=== PATIENT | male | born 2000 | race African-American/Black ===

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

== ENCOUNTER 2021-04-22 15:34 | Emergency (ER) | payer MEDICARE, OTHER ==
[2021-04-22 16:27] LABS: Glucose,Whole Blood 309 mg/dL (75-99)
[2021-04-22] MEDS ORDERED: SODIUM CHLORIDE 0.9% 1,000 ML IV STA (16:41)
[2021-04-22] MEDS ORDERED: ONDANSETRON 4 MG/2 ML VIAL IVP STA (16:42)
[2021-04-22 17:00] LABS: Amphetamine Screen,Urine Not Detected (NotDetected); Barbiturate Screen,Urine Not Detected (NotDetected); Benzodiazepines Screen,Urine Not Detected (NotDetected); Cocaine Screen,Urine Not Detected (NotDetected); Methadone Screen, Urine Not Detected (NotDetected); Opiate Screen,Urine Not Detected (NotDetected); Oxycodone Screen, Urine Not Detected (NotDetected); Phencyclidine Screen,Urine Not Detected (NotDetected); Tricyclic Antidepressant,Urine Not Detected (NotDetected); Urn Cannabinoid Scrn Not Detected (NotDetected)
[2021-04-22 17:16] LABS: Basophils # (A) 0.1 k/uL (0-0.2); Basophils % (A) 1 %; Eosinophils # (A) 0.3 k/uL (0-0.7); Eosinophils % (A) 5 %; HCT 47.5 % (39.0-53.0); HGB 16.1 gm/dL (13.0-17.5); Lymphocytes # (A) 2.6 k/uL (1.0-4.8); Lymphocytes % (A) 37 %; MCH 26.5 pg (25.0-35.0); MCHC 33.8 g/dL (31.0-37.0); MCV 78.4 fL (80.0-100.0); Mean Platelet Volume 9.3; Monocytes # (A) 0.4 k/uL (0-1.0); Monocytes % (A) 5 %; Neutrophils # (A) 3.4 k/uL (1.3-7.7); Neutrophils % (A) 49 %; Platelet Count 222 k/uL (150-450); RBC 6.07 m/uL (4.30-5.90); RDW 14.9 % (11.5-15.5); WBC 6.9 k/uL (4.0-11.0)
[2021-04-22 17:38] LABS: African American GFR (CKD) >90 (>60 ml/min/1.73 sqM); Anion Gap 10 mmol/L; Blood Urea Nitrogen 13 mg/dL (9-20); Calcium 9.8 mg/dL (8.4-10.2); Carbon Dioxide 24 mmol/L (22-30); Chloride 100 mmol/L (98-107); Glucose 315 mg/dL (74-99); Magnesium 1.9 mg/dL (1.6-2.3); Non-African American GFR(CKD) >90 (>60 ml/min/1.73 sqM); Potassium 4.7 mmol/L (3.5-5.1); Sodium 134 mmol/L (137-145)
[2021-04-22] MEDS ORDERED: INSULIN ASPART (NovoLOG) 100 UNIT/ML VIAL SQ ONE (18:36)
--- NOTE | 2021-04-22 19:22 | ED ---
General Adult HPI - General Chief complaint: Psychiatric Symptoms Stated complaint: EPS Time Seen by Provider: 04/22/21 15:57 Source: EMS, RN notes reviewed, old records reviewed Mode of arrival: EMS Limitations: no limitations - History of Present Illness Initial comments: I evaluated the patient was placed in a room. Patient is a 20-year-old male wit h past medical history remarkable for recently diagnosed insulin dependent diabetes, autism, as well as anger outbursts who presents emergency department after being brought in by his mother following an anger outburst. Patient was at home and throwing things and told his mother that he wants to kill himself. She became concerned and brought him into the emergency for evaluation. The patient does endorse suicidal ideations as well as a plan, that being hanging himself in his house. Denies any attempts. Denies any homicidal ideations, attempts, plans. Denies any visual or auditory hallucinations at this time. Patient currently denies any acute complaints except for some mild nausea which he states is chronic. Patient does have a history of diabetes and his sugars have been running high. There is been no emesis. He is not urinating frequently. He denies any chest pain, AMANDA. He has no other acute complaints at this time. Denies any fevers, chills, cough. - Related Data Home Medications Medication Instructions Recorded Confirmed ARIPiprazole [Abilify] 5 mg PO QAM 04/03/20 08/23/20 FLUoxetine HCL [PROzac] 20 mg PO DAILY 04/03/20 08/23/20 INSULIN LISPRO (humaLOG) [humaLOG] 5 unit SQ AC-TID 06/16/20 08/23/20 INSULIN LISPRO (humaLOG) [humaLOG] See Protocol SQ AC-TID PRN 06/16/20 08/23/20 Insulin Glargine,Hum.rec.anlog 30 unit SQ HS 06/16/20 08/23/20 [Basaglar Kwikpen U-100] metFORMIN HCL 500 mg PO HS 06/16/20 08/23/20 Allergies Allergy/AdvReac Type Severity Reaction Status Date / Time No Known Allergies Allergy Verified 04/22/21 15:51 Review of Systems ROS Statement: Those systems with pertinent positive or pertinent negative responses have been documented in the HPI. Review of Systems: CONST: Denies fever EYES: Denies blurry vision ENT: Denies nasal congestion C/V: Denies Chest pain RESP: Denies shortness of breath GI: Denies abdominal pain : Denies dysuria SKIN: Denies rash. MSK: Denies joint pain. NEURO: Denies headache PSYCH: Denies homicidal ideations/plans/attempts. Denies visual or auditory hallucinations. He endorses suicidal ideations and plans but denies attempts. ROS Other: All systems not noted in ROS Statement are negative. Past Medical History Past Medical History: Diabetes Mellitus Additional Past Medical History / Comment(s): austism History of Any Multi-Drug Resistant Organisms: None Reported Past Surgical History: No Surgical Hx Reported Additional Past Surgical History / Comment(s): tonsillectomy at 4 years old Past Anesthesia/Blood Transfusion Reactions: No Reported Reaction Past Psychological History: Anxiety, Depression Smoking Status: Never smoker Past Alcohol Use History: None Reported Past Drug Use History: None Reported General Exam - General Exam Comments Initial Comments: General: Appears in no acute distress. HEAD: Normal with no signs of head trauma. EYES: PERRLA, EOMI, conjunctiva normal, no discharge. Pupils are 3 mm and equal bilaterally. ENT: Hearing grossly intact, normal oropharynx. RESPIRATORY: Clear breath sounds bilaterally. No wheezes, rales, or rhonchi. C/V: Regular rate and rhythm. S1 and S2 auscultated, no edema, peripheral pulses 2+ and intact throughout ABD: Abd is soft, nontender, nondistended EXT: Normal range of motion, no obvious deformity SKIN: No rashes or lesions observed on exposed skin. NEURO: Alert and oriented 4. No focal deficits. Limitations: no limitations Course Vital Signs 04/22/21 04/22/21 04/22/21 15:43 17:56 19:46 Temperature 98.1 F Pulse Rate 85 79 82 Respiratory 18 16 18 Rate Blood Pressure 131/81 130/80 118/75 O2 Sat by Pulse 95 96 96 Oximetry Medical Decision Making - Medical Decision Making Based on the patient's presentation and physical exam, do believe that he requir es psychiatric evaluation. Breathalyzer alcohol was obtained and was 0. UDS will be ordered. We will also obtain a POC blood glucose. It was over 300 and therefore we will obtain basic laboratory studies to ensure the patient is not in DKA as he is endorsing mild nausea. He will be given a 1 L fluid bolus as well as IV Zofran. Patient's mother were in agreement this plan. Patient's laboratory studies were relatively unremarkable and did not reveal any signs of acute DKA. Patient is hyperglycemic and will be given 5 units of insulin. At this time, patient is medically cleared for evaluation by EPS. His nausea has resolved. EPS evaluated the patient includes a prescription for discharge home. He is cleared from a psychiatric standpoint. Patient's mother was giving outpatient follow-up information. Patient was therefore discharged home in good condition. - Lab Data Result diagrams: 04/22/21 17:07 04/22/21 17:07 Lab Results 04/22/21 04/22/21 04/22/21 Range/Units 16:16 16:31 17:07 WBC 6.9 (4.0-11.0) k/uL RBC 6.07 H (4.30-5.90) m/uL Hgb 16.1 (13.0-17.5) gm/dL Hct 47.5 (39.0-53.0) % MCV 78.4 L (80.0-100.0) fL MCH 26.5 (25.0-35.0) pg MCHC 33.8 (31.0-37.0) g/dL RDW 14.9 (11.5-15.5) % Plt Count 222 (150-450) k/uL MPV 9.3 Neutrophils % 49 % Lymphocytes % 37 % Monocytes % 5 % Eosinophils % 5 % Basophils % 1 % Neutrophils # 3.4 (1.3-7.7) k/uL Lymphocytes # 2.6 (1.0-4.8) k/uL Monocytes # 0.4 (0-1.0) k/uL Eosinophils # 0.3 (0-0.7) k/uL Basophils # 0.1 (0-0.2) k/uL Sodium (137-145) mmol/L Potassium (3.5-5.1) mmol/L Chloride (98-107) mmol/L Carbon Dioxide (22-30) mmol/L Anion Gap mmol/L BUN (9-20) mg/dL Creatinine (0.66-1.25) mg/dL Est GFR (CKD-EPI)AfAm (>60 ml/min/1.73 sqM) Est GFR (CKD-EPI)NonAf (>60 ml/min/1.73 sqM) Glucose (74-99) mg/dL POC Glucose (mg/dL) 309 H (75-99) mg/dL POC Glu Director Of Assessing ID Khushi Nino Calcium (8.4-10.2) mg/dL Magnesium (1.6-2.3) mg/dL Urine Opiates Screen Not Detected (NotDetected) Ur Oxycodone Screen Not Detected (NotDetected) Urine Methadone Screen Not Detected (NotDetected) Ur Propoxyphene Screen Not Detected (NotDetected) Ur Barbiturates Screen Not Detected (NotDetected) U Tricyclic Antidepress Not Detected (NotDetected) Ur Phencyclidine Scrn Not Detected (NotDetected) Ur Amphetamines Screen Not Detected (NotDetected) U Methamphetamines Scrn Not Detected (NotDetected) U Benzodiazepines Scrn Not Detected (NotDetected) Urine Cocaine Screen Not Detected (NotDetected) U Marijuana (THC) Screen Not Detected (NotDetected) 04/22/21 Range/Units 17:07 WBC (4.0-11.0) k/uL RBC (4.30-5.90) m/uL Hgb (13.0-17.5) gm/dL Hct (39.0-53.0) % MCV (80.0-100.0) fL MCH (25.0-35.0) pg MCHC (31.0-37.0) g/dL RDW (11.5-15.5) % Plt Count (150-450) k/uL MPV Neutrophils % % Lymphocytes % % Monocytes % % Eosinophils % % Basophils % % Neutrophils # (1.3-7.7) k/uL Lymphocytes # (1.0-4.8) k/uL Monocytes # (0-1.0) k/uL Eosinophils # (0-0.7) k/uL Basophils # (0-0.2) k/uL Sodium 134 L (137-145) mmol/L Potassium 4.7 (3.5-5.1) mmol/L Chloride 100 (98-107) mmol/L Carbon Dioxide 24 (22-30) mmol/L Anion Gap 10 mmol/L BUN 13 (9-20) mg/dL Creatinine 0.59 L (0.66-1.25) mg/dL Est GFR (CKD-EPI)AfAm >90 (>60 ml/min/1.73 sqM) Est GFR (CKD-EPI)NonAf >90 (>60 ml/min/1.73 sqM) Glucose 315 H (74-99) mg/dL POC Glucose (mg/dL) (75-99) mg/dL POC Glu Director Of Assessing ID Calcium 9.8 (8.4-10.2) mg/dL Magnesium 1.9 (1.6-2.3) mg/dL Urine Opiates Screen (NotDetected) Ur Oxycodone Screen (NotDetected) Urine Methadone Screen (NotDetected) Ur Propoxyphene Screen (NotDetected) Ur Barbiturates Screen (NotDetected) U Tricyclic Antidepress (NotDetected) Ur Phencyclidine Scrn (NotDetected) Ur Amphetamines Screen (NotDetected) U Methamphetamines Scrn (NotDetected) U Benzodiazepines Scrn (NotDetected) Urine Cocaine Screen (NotDetected) U Marijuana (THC) Screen (NotDetected) Disposition Clinical Impression: Encounter for psychiatric assessment, Hyperglycemia due to diabetes mellitus Disposition: HOME SELF-CARE Condition: Good Instructions (If sedation given, give patient instructions): Depression (ED), Help Prevent Suicide (ED), Anxiety (ED), Suicide Prevention (ED) Is patient prescribed a controlled substance at d/c from ED?: No Referrals: Keith Barba DO [Primary Care Provider] - 1-2 days
[2021-04-22 19:52] VITALS: BP 118/75; PULSE 82; RESP 18; TEMP 98.1
== END 2021-04-22 19:56 | disposition home or self-care (01) ==
LOC: EC 15:34
DX: Z04.6 Encounter for general psychiatric examination, requested by authority (principal); E11.65 Type 2 diabetes mellitus with hyperglycemia; F84.0 Autistic disorder; F41.9 Anxiety disorder, unspecified; F32.9 Major depressive disorder, single episode, unspecified; Z79.4 Long term (current) use of insulin; Z90.89 Acquired absence of other organs
CPT/HCPCS: 99285; 96374; 96361; 82075; 36415; 80048; 83735; 85025; 80306; J2405

== ENCOUNTER → 2021-12-26 | Outpatient (CLI) | payer MEDICARE, OTHER ==
[2021-12-26 14:45] LABS: African American GFR (CKD) 152.8 (60.0-200.0); Albumin 4.6 g/dL (3.8-4.9); Albumin/Globulin Ratio 1.73 (1.60-3.17); Anion Gap 5.9 mmol/L (10.00-18.00); BUN/Creat Ratio 15.67 Ratio (12.00-20.00); Blood Urea Nitrogen 11.8 mg/dL (9.0-27.0); Calcium 10.2 mg/dL (8.7-10.3); Carbon Dioxide 28.8 mmol/L (20.0-27.5); Globulin 2.6 g/dL (1.6-3.3); Non-African American GFR(CKD) 131.8 (60.0-200.0); Potassium 4.6 mmol/L (3.5-5.5); Total Bilirubin 0.4 mg/dL (0.30-1.20); Total Protein 7.2 g/dL (6.2-8.2)
[2021-12-27 07:59] LABS: C-Peptide 6.08 ng/mL (0.81-3.85)
== END | disposition home or self-care (01) ==
LOC: LABWHC1 10:14
PROVIDERS: ATTEND Internal Medicine Endocrinology, Diabetes & Metabolism
DX: E11.65 Type 2 diabetes mellitus with hyperglycemia (principal)
CPT/HCPCS: 36415; 80053; 83519; 84681

== ENCOUNTER → 2022-01-03 | Outpatient (CLI) | payer MEDICARE, OTHER ==
--- NOTE | 2022-01-03 16:07 | P.PN ---
Subjective DATE: 01/03/2022 FOLLOW UP VISIT. Patient with obstructive sleep apnea hypopnea syndrome return to sleep center for follow-up visit. Recently patient had sleep study which documented obstructive sleep apnea hypopnea syndrome. Patient was initiated on PAP therapy and today is first visit after treatment was started. Patient was not able to use PAP equipment every night for the whole night. The patient does has significant problems with the mask and PAP pressure [place] sleepiness scale increased to 13. I checked information from PAP unit. PAP unit pressure from 7-16 cm H2O. Usage is 10 % for more then 4 hours, average 1 hour 52 minutes per night. Leak is 6.3 l/m, which is in acceptable range. Apnea Hypopnea Index is 2.8, which is normal. MEDICATIONS:1. Abilify 2. Humalog 3. Lantus 4. Adipex 5. Fluoxetine During physical exam: GENERAL: A pleasant patient without any distress. VITAL SIGNS: BP [], HR [], RR[] , weight[], temperature [], oxygen saturation at room air[] . HEENT: PERRLA, EOMI.low position of soft palate, Mallapati[] . NECK: Supple. No JVD. LUNGS: Clear to percussion and to auscultation. Good air exchange. No wheezing or rhonchi. HEART: S1, S2 regular. ABDOMEN: Soft and nontender.[] EXTREMITIES: No clubbing or cyanosis. BOND BROKER: Awake, alert, and oriented x3. No focal deficit. Impressions: 1. Obstructive sleep apnea-hypopnea syndrome. Patient has significant difficulties with the usage of CPAP equipment.difficulties with exhalation feel pressure is too high . 2. Obesity. 3. History of outistick disorder. 4. Diabetes mellitus. 5. Status post tonsillectomy and adenoidectomy. Plan: We will repeat Pap titration. Possibly patient needs BiPAP machine. I change regimen in the machine to the range of pressure 6-12 cm of water Continue using PAP equipment every night for the whole night.. To change air filter at least 1-2 times per month. PAP unit should stay lower then position of the head. Advised patient to remove all remaining water from humidifier canister daily and make it dry after each usage. Refill canister with fresh distilled water before each usage. Sleep hygiene with regular time in bed for at least 8 hours. Precautions related to driving. No driving if feel any sleepiness. I will maintain prescription for PAP supplies including mask, tube, filters. Follow up visit in 6 months or earlier if patient has any problems. Watching weight. Thank you very much for allowing me to participate in the management of your patient. Adriano Holley MD, PhD, FAASM. Diplomat of [place] [employer], Sleep Medicine Board by [place] [employer] Utility Accounts Director of [facility] [place]
== END ==
LOC: SLEEP 15:07
PROVIDERS: ATTEND Internal Medicine
DX: G47.33 Obstructive sleep apnea (adult) (pediatric) (principal); E66.9 Obesity, unspecified; E11.9 Type 2 diabetes mellitus without complications; Z90.09 Acquired absence of other part of head and neck; Z79.4 Long term (current) use of insulin; Z99.89 Dependence on other enabling machines and devices

== ENCOUNTER → 2022-04-10 | Outpatient (CLI) | payer MEDICARE, OTHER ==
--- NOTE | 2022-04-10 17:10 | P.PN ---
Subjective DATE: 04/10/2022 FOLLOW UP VISIT. Patient with obstructive sleep apnea hypopnea syndrome return to sleep center for follow-up visit. Information from previous visit have been reviewed. Patient is using PAP equipment every night for the whole night, getting PAP supplies in time. Patient feels some discomfort related to pressure while he is using CPAP equipment. [place] sleepiness scale is increased to 13. I checked information from PAP unit. PAP unit pressure 6-12, average 10.7 cm H2O. Usage is 100 % nights, but only about 50% nights for more then 4 hours, average 4.5 hours per night. Leak is 8.9 l/m, which is in acceptable range. Apnea Hypopnea Index is 5.8, which is borderline. MEDICATIONS:1. Abilify 2. Humalog 3. Lantus 4. Adipex 5. Fluoxetine During physical exam: GENERAL: A pleasant patient without any distress. VITAL SIGNS: BP 116/76, HR 86, RR 16 , weight 263, temperature 98.7, oxygen saturation at room air 97 % . HEENT: PERRLA, EOMI.low position of soft palate NECK: Supple. No JVD. LUNGS: Clear to percussion and to auscultation. Good air exchange. No wheezing or rhonchi. HEART: S1, S2 regular. ABDOMEN: Soft and nontender. Obese EXTREMITIES: No clubbing or cyanosis. PRESIDENT AND CHIEF EXECUTIVE OFFICER: Awake, alert, and oriented x3. No focal deficit. Impressions: 1. Obstructive sleep apnea-hypopnea syndrome. Patient patient has difficulties with the usage of CPAP equipment related to the pressure. 2. Obesity. 3. Diabetes mellitus. 4. History of autistic disorder. 5. Status post tonsillectomy and adenoidectomy. Plan: 1. Continue using PAP equipment every night for the whole night. I changed level of pressure to the range from 5 cm of water up to 10 cm of water instead of 12 cm of water. I changed ramp to automatic regimen. 2. To change air filter at least 1-2 times per month. 3. PAP unit should stay lower then position of the head. 4. Advised patient and family to remove all remaining water from humidifier canister daily and make it dry after each usage. Refill canister with fresh distilled water before each usage. 5. Sleep hygiene with regular time in bed for at least [address] 7. I will maintain prescription for PAP supplies including mask, tube, filters. 8. Follow up visit in 3 months or earlier if patient has any problems. 9. Watching weight. Thank you very much for allowing me to participate in the management of your patient. Adriano Holley MD, PhD, FAASM. Diplomat of [employer], Sleep Medicine Board by [employer] Slat Basket Maker Helper Machine of [facility] [place]
== END ==
LOC: SLEEP 16:30
PROVIDERS: ATTEND Internal Medicine
DX: G47.33 Obstructive sleep apnea (adult) (pediatric) (principal); E11.9 Type 2 diabetes mellitus without complications; Z90.09 Acquired absence of other part of head and neck; Z99.89 Dependence on other enabling machines and devices; E66.9 Obesity, unspecified; Z79.4 Long term (current) use of insulin

== ENCOUNTER 2022-04-27 20:06 | Emergency (ER) | payer MEDICARE, OTHER ==
[2022-04-27 20:22] VITALS: BP 114/74; PULSE 79; RESP 18; TEMP 98.2
--- NOTE | 2022-04-27 21:11 | ED ---
Psych HPI - General Chief Complaint: Psychiatric Symptoms Stated Complaint: mental health Time Seen by Provider: 04/27/22 20:27 Source: patient Mode of arrival: ambulatory - History of Present Illness Initial Comments: Patient is a 21-year-old male with a past medical history of autism and type 2 diabetes who presents to the emergency department for suicidal ideation. Patient was found by the police standing on a bridge contemplating to jump. Patient is not petitioned. He presents with his mom. Denies homicidal ideation. Denies auditory hallucinations. Denies fever, chills, shortness of breath, chest pain, abdominal pain, nausea, vomiting, diarrhea. Denies alcohol use. Denies drug use including marijuana. - Related Data Home Medications Medication Instructions Recorded Confirmed ARIPiprazole [Abilify] 5 mg PO QAM 04/03/20 08/23/20 FLUoxetine HCL [PROzac] 20 mg PO DAILY 04/03/20 08/23/20 INSULIN LISPRO (humaLOG) [humaLOG] 5 unit SQ AC-TID 06/16/20 08/23/20 INSULIN LISPRO (humaLOG) [humaLOG] See Protocol SQ AC-TID PRN 06/16/20 08/23/20 Insulin Glargine,Hum.rec.anlog 30 unit SQ HS 06/16/20 08/23/20 [Basaglar Kwikpen U-100] metFORMIN HCL 500 mg PO HS 06/16/20 08/23/20 Allergies Allergy/AdvReac Type Severity Reaction Status Date / Time No Known Allergies Allergy Verified 04/27/22 20:22 Review of Systems ROS Statement: Those systems with pertinent positive or pertinent negative responses have been documented in the HPI. ROS Other: All systems not noted in ROS Statement are negative. Past Medical History Past Medical History: Diabetes Mellitus Additional Past Medical History / Comment(s): austism History of Any Multi-Drug Resistant Organisms: None Reported Past Surgical History: No Surgical Hx Reported Additional Past Surgical History / Comment(s): tonsillectomy at 4 years old Past Anesthesia/Blood Transfusion Reactions: No Reported Reaction Past Psychological History: Anxiety, Depression Smoking Status: Never smoker Past Alcohol Use History: None Reported Past Drug Use History: None Reported General Exam Limitations: no limitations General appearance: alert, in no apparent distress Head exam: Present: atraumatic, normocephalic, normal inspection Respiratory exam: Present: normal lung sounds bilaterally. Absent: respiratory distress, wheezes, rales, rhonchi, stridor Cardiovascular Exam: Present: regular rate, normal rhythm, normal heart sounds. Absent: systolic murmur, diastolic murmur, rubs, gallop, clicks GI/Abdominal exam: Present: soft, normal bowel sounds. Absent: distended, tenderness, guarding, rebound, rigid Neurological exam: Present: alert, oriented X3, CN II-XII intact Psychiatric exam: Present: normal affect, normal mood Skin exam: Present: warm, dry, intact, normal color. Absent: rash Course Vital Signs 04/27/22 20:19 Temperature 98.2 F Pulse Rate 79 Respiratory 18 Rate Blood Pressure 114/74 O2 Sat by Pulse 97 Oximetry Medical Decision Making - Medical Decision Making This is a 21-year-old male presenting with suicidal ideation. Breath alcohol is 0. Patient is cleared from medical standpoint can be evaluated by emergency psychiatric services. Patient evaluated by emergency psychiatric services. Mother requests that corie elias goes home which was cleared by emergency psychiatric services. Dr. Casarez is my attending. Disposition Clinical Impression: Suicidal ideation, Autism Disposition: HOME SELF-CARE Condition: Good Additional Instructions: Please return to the emergency Department patient experiences new, concerning, or worsening symptoms. Is patient prescribed a controlled substance at d/c from ED?: No Referrals: Keith Barba DO [Primary Care Provider] - 1-2 days Time of Disposition: 23:16
== END 2022-04-27 23:35 | disposition home or self-care (01) ==
LOC: EC 20:06
DX: R45.851 Suicidal ideations (principal); F84.0 Autistic disorder; E11.9 Type 2 diabetes mellitus without complications; F41.9 Anxiety disorder, unspecified; F32.A Depression, unspecified; Z79.4 Long term (current) use of insulin; Z79.84 Long term (current) use of oral hypoglycemic drugs; Z79.899 Other long term (current) drug therapy
CPT/HCPCS: 99284

== ENCOUNTER 2022-05-30 12:04 | Emergency (ER) | payer MEDICARE, OTHER ==
[2022-05-30 12:11] LABS: Glucose,Whole Blood 254 mg/dL (70-110)
[2022-05-30 12:20] VITALS: TEMP 98.3
[2022-05-30] MEDS ORDERED: SODIUM CHLORIDE 0.9% 500 ML 500 ML IV STA (13:14)
--- NOTE | 2022-05-30 13:27 | ED ---
Syncope HPI - General Chief Complaint: Syncope Stated Complaint: AMS Time Seen by Provider: 05/30/22 12:08 Source: patient Mode of arrival: EMS Limitations: no limitations - History of Present Illness MD Complaint: loss of consciousness, collapsed Onset/Timin -: hour(s) Prodromal Symptoms: lightheaded -: second(s) Witnessed: yes - by bystander Injuries Sustained Associated with Event: None Current Symptoms: back to baseline Context: standing up Treatments Prior to Arrival: none - Related Data Home Medications Medication Instructions Recorded Confirmed ARIPiprazole [Abilify] 5 mg PO DAILY 04/03/20 05/30/22 Atorvastatin [Lipitor] 20 mg PO DAILY 05/30/22 05/30/22 Semaglutide [Ozempic] 0.25 mg SQ DIRECTED 05/30/22 05/30/22 Venlafaxine HCl [Effexor XR] 225 mg PO DAILY 05/30/22 05/30/22 Allergies Allergy/AdvReac Type Severity Reaction Status Date / Time No Known Allergies Allergy Verified 05/30/22 13:17 Review of Systems ROS Statement: Those systems with pertinent positive or pertinent negative responses have been documented in the HPI. ROS Other: All systems not noted in ROS Statement are negative. Constitutional: Denies: fever, chills Respiratory: Denies: cough, dyspnea Cardiovascular: Reports: syncope. Denies: chest pain, palpitations, orthopnea Gastrointestinal: Reports: diarrhea (Proximally one week). Denies: abdominal pain, vomiting Genitourinary: Denies: dysuria, frequency, hematuria Musculoskeletal: Denies: back pain Skin: Denies: rash Neurological: Denies: headache, weakness, confusion Past Medical History Past Medical History: Diabetes Mellitus Additional Past Medical History / Comment(s): austism History of Any Multi-Drug Resistant Organisms: None Reported Past Surgical History: No Surgical Hx Reported Additional Past Surgical History / Comment(s): tonsillectomy at 4 years old Past Anesthesia/Blood Transfusion Reactions: No Reported Reaction Past Psychological History: Anxiety, Depression Smoking Status: Never smoker Past Alcohol Use History: None Reported Past Drug Use History: None Reported General Exam Limitations: no limitations General appearance: alert, in no apparent distress Head exam: Present: atraumatic, normocephalic Eye exam: Present: normal appearance. Absent: scleral icterus, conjunctival injection Neck exam: Present: normal inspection Respiratory exam: Present: normal lung sounds bilaterally. Absent: respiratory distress, wheezes, rales, rhonchi, stridor Cardiovascular Exam: Present: regular rate, normal rhythm, normal heart sounds. Absent: systolic murmur, diastolic murmur, rubs, gallop GI/Abdominal exam: Present: soft. Absent: distended, tenderness, guarding, rebound, rigid, mass Extremities exam: Present: normal inspection, normal capillary refill. Absent: pedal edema, calf tenderness Back exam: Present: normal inspection. Absent: CVA tenderness (R), CVA tenderness (L) Neurological exam: Present: alert, oriented X3, CN II-XII intact. Absent: motor sensory deficit Skin exam: Present: warm, dry, intact, normal color. Absent: rash Course Vital Signs 05/30/22 05/30/22 12:15 16:47 Temperature 98.3 F Pulse Rate 80 78 Respiratory 18 16 Rate Blood Pressure 153/94 138/72 O2 Sat by Pulse 97 99 Oximetry EKG Findings - EKG Comments: EKG Findings:: There may be a delta wave present in lead V3. - EKG Results: EKG: interpreted by ERMD, sinus rhythm, normal axis, normal QRS, normal ST/T Medical Decision Making - Lab Data Result diagrams: 05/30/22 13:17 05/30/22 13:17 Lab Results 05/30/22 05/30/22 05/30/22 Range/Units 12:09 13:17 13:17 WBC 7.6 (3.8-10.6) k/uL RBC 5.81 (4.30-5.90) m/uL Hgb 15.6 (13.0-17.5) gm/dL Hct 47.1 (39.0-53.0) % MCV 81.1 (80.0-100.0) fL MCH 26.9 (25.0-35.0) pg MCHC 33.2 (31.0-37.0) g/dL RDW 14.3 (11.5-15.5) % Plt Count 242 (150-450) k/uL MPV 9.5 Neutrophils % 59 % Lymphocytes % 29 % Monocytes % 7 % Eosinophils % 3 % Basophils % 1 % Neutrophils # 4.5 (1.3-7.7) k/uL Lymphocytes # 2.2 (1.0-4.8) k/uL Monocytes # 0.5 (0-1.0) k/uL Eosinophils # 0.2 (0-0.7) k/uL Basophils # 0.0 (0-0.2) k/uL PT 10.8 (9.0-12.0) sec INR 1.0 (<1.2) APTT 23.6 (22.0-30.0) sec Sodium (137-145) mmol/L Potassium (3.5-5.1) mmol/L Chloride (98-107) mmol/L Carbon Dioxide (22-30) mmol/L Anion Gap mmol/L BUN (9-20) mg/dL Creatinine (0.66-1.25) mg/dL Est GFR (CKD-EPI)AfAm (>60 ml/min/1.73 sqM) Est GFR (CKD-EPI)NonAf (>60 ml/min/1.73 sqM) Glucose (74-99) mg/dL POC Glucose (mg/dL) 254 H (70-110) mg/dL POC Glu Family Resource Specialist ID Ana Laura Chatterjee Calcium (8.4-10.2) mg/dL Total Bilirubin (0.2-1.3) mg/dL AST (17-59) U/L ALT (4-49) U/L Alkaline Phosphatase (38-126) U/L Troponin I (0.000-0.034) ng/mL Total Protein (6.3-8.2) g/dL Albumin (3.5-5.0) g/dL Urine Color Urine Appearance (Clear) Urine pH (5.0-8.0) Ur Specific [place] (1.001-1.035) Urine Protein (Negative) Urine Glucose (UA) (Negative) Urine Ketones (Negative) Urine Blood (Negative) Urine Nitrite (Negative) Urine Bilirubin (Negative) Urine Urobilinogen (<2.0) mg/dL Ur Leukocyte Esterase (Negative) 05/30/22 05/30/22 05/30/22 Range/Units 13:17 13:17 13:17 WBC (3.8-10.6) k/uL RBC (4.30-5.90) m/uL Hgb (13.0-17.5) gm/dL Hct (39.0-53.0) % MCV (80.0-100.0) fL MCH (25.0-35.0) pg MCHC (31.0-37.0) g/dL RDW (11.5-15.5) % Plt Count (150-450) k/uL MPV Neutrophils % % Lymphocytes % % Monocytes % % Eosinophils % % Basophils % % Neutrophils # (1.3-7.7) k/uL Lymphocytes # (1.0-4.8) k/uL Monocytes # (0-1.0) k/uL Eosinophils # (0-0.7) k/uL Basophils # (0-0.2) k/uL PT (9.0-12.0) sec INR (<1.2) APTT (22.0-30.0) sec Sodium 136 L (137-145) mmol/L Potassium 5.2 H (3.5-5.1) mmol/L Chloride 100 (98-107) mmol/L Carbon Dioxide 20 L (22-30) mmol/L Anion Gap 16 mmol/L BUN 15 (9-20) mg/dL Creatinine 0.64 L (0.66-1.25) mg/dL Est GFR (CKD-EPI)AfAm >90 (>60 ml/min/1.73 sqM) Est GFR (CKD-EPI)NonAf >90 (>60 ml/min/1.73 sqM) Glucose 282 H (74-99) mg/dL POC Glucose (mg/dL) (70-110) mg/dL POC Glu Family Resource Specialist ID Calcium 9.2 (8.4-10.2) mg/dL Total Bilirubin 0.4 (0.2-1.3) mg/dL AST 48 (17-59) U/L ALT 61 H (4-49) U/L Alkaline Phosphatase 89 (38-126) U/L Troponin I <0.012 (0.000-0.034) ng/mL Total Protein 7.1 (6.3-8.2) g/dL Albumin 4.4 (3.5-5.0) g/dL Urine Color Yellow Urine Appearance Clear (Clear) Urine pH 6.0 (5.0-8.0) Ur Specific [place] 1.029 (1.001-1.035) Urine Protein Trace H (Negative) Urine Glucose (UA) 4+ H (Negative) Urine Ketones Negative (Negative) Urine Blood Negative (Negative) Urine Nitrite Negative (Negative) Urine Bilirubin Negative (Negative) Urine Urobilinogen <2.0 (<2.0) mg/dL Ur Leukocyte Esterase Negative (Negative) 05/30/22 Range/Units 15:25 WBC (3.8-10.6) k/uL RBC (4.30-5.90) m/uL Hgb (13.0-17.5) gm/dL Hct (39.0-53.0) % MCV (80.0-100.0) fL MCH (25.0-35.0) pg MCHC (31.0-37.0) g/dL RDW (11.5-15.5) % Plt Count (150-450) k/uL MPV Neutrophils % % Lymphocytes % % Monocytes % % Eosinophils % % Basophils % % Neutrophils # (1.3-7.7) k/uL Lymphocytes # (1.0-4.8) k/uL Monocytes # (0-1.0) k/uL Eosinophils # (0-0.7) k/uL Basophils # (0-0.2) k/uL PT (9.0-12.0) sec INR (<1.2) APTT (22.0-30.0) sec Sodium (137-145) mmol/L Potassium (3.5-5.1) mmol/L Chloride (98-107) mmol/L Carbon Dioxide (22-30) mmol/L Anion Gap mmol/L BUN (9-20) mg/dL Creatinine (0.66-1.25) mg/dL Est GFR (CKD-EPI)AfAm (>60 ml/min/1.73 sqM) Est GFR (CKD-EPI)NonAf (>60 ml/min/1.73 sqM) Glucose (74-99) mg/dL POC Glucose (mg/dL) 120 H (70-110) mg/dL POC Glu Family Resource Specialist ID Belval, Ana Laura Calcium (8.4-10.2) mg/dL Total Bilirubin (0.2-1.3) mg/dL AST (17-59) U/L ALT (4-49) U/L Alkaline Phosphatase (38-126) U/L Troponin I (0.000-0.034) ng/mL Total Protein (6.3-8.2) g/dL Albumin (3.5-5.0) g/dL Urine Color Urine Appearance (Clear) Urine pH (5.0-8.0) Ur Specific [place] (1.001-1.035) Urine Protein (Negative) Urine Glucose (UA) (Negative) Urine Ketones (Negative) Urine Blood (Negative) Urine Nitrite (Negative) Urine Bilirubin (Negative) Urine Urobilinogen (<2.0) mg/dL Ur Leukocyte Esterase (Negative) Disposition Clinical Impression: Syncope, Hyperglycemia Disposition: HOME SELF-CARE Condition: Good Is patient prescribed a controlled substance at d/c from ED?: No Referrals: Keith Barba DO [Primary Care Provider] - 1-2 days
[2022-05-30 13:30] LABS: Basophils % (A) 1 %; Eosinophils # (A) 0.2 k/uL (0-0.7); Eosinophils % (A) 3 %; HCT 47.1 % (39.0-53.0); HGB 15.6 gm/dL (13.0-17.5); Lymphocytes # (A) 2.2 k/uL (1.0-4.8); Lymphocytes % (A) 29 %; MCH 26.9 pg (25.0-35.0); MCHC 33.2 g/dL (31.0-37.0); MCV 81.1 fL (80.0-100.0); Mean Platelet Volume 9.5; Monocytes # (A) 0.5 k/uL (0-1.0); Monocytes % (A) 7 %; Neutrophils # (A) 4.5 k/uL (1.3-7.7); Neutrophils % (A) 59 %; Platelet Count 242 k/uL (150-450); RBC 5.81 m/uL (4.30-5.90); RDW 14.3 % (11.5-15.5); WBC 7.6 k/uL (3.8-10.6)
[2022-05-30 13:37] LABS: Appearance,Urine Clear (Clear); Bilirubin,Urine Negative (Negative); Blood,Urine Negative (Negative); Color,Urine Yellow; Glucose,Urine (UA) 4+ (Negative); Ketones,Urine Negative (Negative); Leukocyte Esterase,Urine Negative (Negative); Nitrite,Urine Negative (Negative); Protein,Urine Trace (Negative); Specific Gravity,Urine 1.029 (1.001-1.035); Urobilinogen,Urine <2.0 mg/dL (<2.0)
[2022-05-30 13:41] LABS: ALT 61 U/L (4-49); AST 48 U/L (17-59); African American GFR (CKD) >90 (>60 ml/min/1.73 sqM); Albumin 4.4 g/dL (3.5-5.0); Alkaline Phosphatase 89 U/L (38-126); Anion Gap 16 mmol/L; Blood Urea Nitrogen 15 mg/dL (9-20); Calcium 9.2 mg/dL (8.4-10.2); Carbon Dioxide 20 mmol/L (22-30); Chloride 100 mmol/L (98-107); Glucose 282 mg/dL (74-99); Non-African American GFR(CKD) >90 (>60 ml/min/1.73 sqM); Partial Thromboplastin Time 23.6 sec (22.0-30.0); Potassium 5.2 mmol/L (3.5-5.1); Prothrombin Time 10.8 sec (9.0-12.0); Sodium 136 mmol/L (137-145); Total Bilirubin 0.4 mg/dL (0.2-1.3); Total Protein 7.1 g/dL (6.3-8.2)
--- NOTE | 2022-05-30 14:01 | XR ---
EXAMINATION TYPE: XR chest 2V DATE OF EXAM: 05/30/2022 1:56 PM COMPARISON: None TECHNIQUE: XR chest 2V Frontal and lateral views of the chest. CLINICAL INDICATION:Male, 22 years old with history of syncope; FINDINGS: Lungs/Pleura: There is no evidence of pleural effusion, focal consolidation, or pneumothorax. Pulmonary vascularity: Unremarkable. Heart/mediastinum: Cardiomediastinal silhouette is unremarkable. Musculoskeletal: No acute osseous pathology. IMPRESSION: No acute cardiopulmonary disease/process.
[2022-05-30] MEDS ORDERED: INSULIN REGULAR 100 UNIT/ML VIAL (IV) IV STA (14:11)
[2022-05-30] MEDS ORDERED: SODIUM CHLORIDE 0.9% 1,000 ML IV ONE (14:11)
[2022-05-30 15:27] LABS: Glucose,Whole Blood 120 mg/dL (70-110)
[2022-05-30 16:48] VITALS: BP 138/72; PULSE 78; RESP 16
== END 2022-05-30 16:48 | disposition home or self-care (01) ==
LOC: EC 12:04
DX: R55 Syncope and collapse (principal); E11.65 Type 2 diabetes mellitus with hyperglycemia; F41.9 Anxiety disorder, unspecified; F32.A Depression, unspecified; Z79.899 Other long term (current) drug therapy
CPT/HCPCS: 36415; 71046; 80053; 81003; 84484; 85025; 85610; 85730; 93005; 96360; 96361; 99284

== ENCOUNTER → 2022-07-10 | Outpatient (CLI) | payer MEDICARE, OTHER ==
--- NOTE | 2022-07-10 17:35 | P.PN ---
Subjective DATE: [] FOLLOW UP VISIT. Patient with obstructive sleep apnea hypopnea syndrome return to sleep center for follow-up visit. Information from previous visit have been reviewed. Patient is using PAP equipment most of the nights, but has problems with a nasal pillow mask and don't use CPAP equipment for the whole night. [place] sleepiness scale is 9, which is close to the border. I checked information from PAP unit. PAP unit pressure 5-10, average 8.3 cm H2O. Usage is 89%, but only 14% for more then 4 hours, average 2 hours 15 minutes hours per night for the last 6 months. Leak is 23.7 l/m, which is in acceptable range. Apnea Hypopnea Index is 5.9, which is borderline. MEDICATIONS:1. Humalog 2. Lantus 3. Adipex 4. Abilify 5. Fluoxetine During physical exam: GENERAL: A pleasant patient without any distress. VITAL SIGNS: BP 115/69, HR 77, RR 20, weight 262.0, temperature 98.1, oxygen saturation at room air 94 % . HEENT: PERRLA, EOMI.low position of soft palate, Mallapati 3 . NECK: Supple. No JVD. LUNGS: Clear to percussion and to auscultation. Good air exchange. No wheezing or rhonchi. HEART: S1, S2 regular. ABDOMEN: Soft and nontender. Obese EXTREMITIES: No clubbing or cyanosis. RN CLINICAL COORDINATOR: Awake, alert, and oriented x3. No focal deficit. Impressions: 1. Obstructive sleep apnea-hypopnea syndrome. Patient is using CPAP equipment practically every night, but not for the whole night, has problems with nasal pillows mask. 2. Obesity. 3. autistic disorder. 4. Diabetes mellitus. 5. Status post tonsillectomy and adenoidectomy. Plan: 1. Repeat home sleep apnea test. It is necessary following medicare guidelines. Patient showed not good compliance after two 90 days periods, but patient trying to use CPAP equipment practically every night. He will try to use equipment every night for the whole night. 2. We will try dream wear under the nose mask. 3. PAP unit should stay lower then position of the head. 4. Advised patient to remove all remaining water from humidifier canister daily and make it dry after each usage. Refill canister with fresh distilled water before each usage. 5. Sleep hygiene with regular time in bed for at least 8 hours. 6. Precautions related to driving. No driving if feel any sleepiness. 7. I will maintain prescription for PAP supplies including mask, tube, filters. 8. Follow up visit in 1-2 months. 9. Watching and losing weight. Thank you very much for allowing me to participate in the management of your patient. Adriano Holley MD, PhD, FAASM. Diplomat of [place] [employer], Sleep Medicine Board by [place] [employer] [facility] [place]
== END ==
LOC: SLEEP 15:50
PROVIDERS: ATTEND Internal Medicine
DX: G47.33 Obstructive sleep apnea (adult) (pediatric) (principal); Z99.89 Dependence on other enabling machines and devices; E66.9 Obesity, unspecified; E11.9 Type 2 diabetes mellitus without complications; F84.0 Autistic disorder; Z90.89 Acquired absence of other organs
CPT/HCPCS: 99212

== ENCOUNTER → 2023-07-03 | Outpatient (CLI) | payer OTHER ==
[2023-07-04 04:54] LABS: Microalbumin Creatinine Ratio <10 mg/g Cr (0-30)
[2023-07-04 05:37] LABS: ALT 45 U/L (10-49); AST 46 U/L (14-35); Albumin 4.3 g/dL (3.8-4.9); Albumin/Globulin Ratio 1.65 Ratio (1.60-3.17); Alkaline Phosphatase 97 U/L (41-126); BUN/Creat Ratio 17.67 Ratio (12.00-20.00); Blood Urea Nitrogen 15.9 mg/dL (9.0-27.0); Calcium 9.1 mg/dL (8.7-10.3); Carbon Dioxide 16.5 mmol/L (21.6-31.8); Chloride 104 mmol/L (96-109); Globulin 2.6 g/dL (1.6-3.3); Glucose 271 mg/dL (70-110); Potassium 5.3 mmol/L (3.5-5.5); Sodium 136 mmol/L (135-145); Total Bilirubin <0.2 mg/dL (0.3-1.2); Total Protein 6.9 g/dL (6.2-8.2)
== END | disposition home or self-care (01) ==
LOC: LABWHC1 15:46
PROVIDERS: ATTEND Internal Medicine Endocrinology, Diabetes & Metabolism
DX: E11.65 Type 2 diabetes mellitus with hyperglycemia (principal)
CPT/HCPCS: 36415; 80053; 82043; 82570; 83036; 84443